=== PATIENT | female | born 1995 | race Caucasian/White ===

== ENCOUNTER 2018-12-18 18:03 | Emergency (ER) | payer OTHER ==
[~2018-12-18] VITALS: Ht 167.6 cm; Wt 77.3 kg
[2018-12-18 19:00] VITALS: BP 116/69; PULSE 77; TEMP 98.6
[2018-12-18 19:23] LABS: HIV 1/2 Antibodies Non-Reactive; HIV-1p24 Antigen Non-Reactive
[2018-12-19 15:52] LABS: HEPATITIS B SURFACE ANTIBODY 264.8 (()); HEPATITIS B SURFACE ANTIGEN Negative (Negative); HEPATITIS C VIRUS ANTIBODY Negative (Negative)
== END 2018-12-18 19:00 | disposition home or self-care (01) ==
LOC: COL.ER 18:03
PROVIDERS: Physician Assistant
DX: S69.92XA Unspecified injury of left wrist, hand and finger(s), initial encounter (principal); W46.0XXA Contact with hypodermic needle, initial encounter